=== PATIENT | male | born 1965 | race Caucasian/White ===

== ENCOUNTER 2017-02-06 22:02 | Observation (INO) | payer BC ==
--- NOTE | ~2017-02-06 | HP ---
History And Physical [place] [id number] [facility] [place]. [address] NAME: DAVI SEN : 69 STATUS : ADM Lori PAT#: [id number] AGE: 51 ADM/REG DATE : 02/06/17 MR#: [id number] REPORT SERV DATE: 02/07/17 DICTATED BY: DATE: REPORT STATUS : Draft TRANSCRIBED BY: MODL DATE: 02/07/17 DATE OF ADMISSION: 02/06/2017 PRIMARY CARE PROVIDER: He does not have one. He goes to [facility] CHIEF COMPLAINT: Chest pressure. HISTORY OF PRESENT ILLNESS: This is a 51-year-old white male with chest pressure to his substernum that does not radiate anywhere. He reports the chest pressure as a 4/10. The patient chest pressure woke him up two days ago from his sleep and he went up, walked around and he developed dry heaving. He went back to bed and fell asleep afterwards. Yesterday, his chest pressure reoccurred after playing basketball outside. He also developed shortness of breath and diaphoresis during that time. 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 They gave him nitro once, it did not relieve his pressure. His pressure was relieved after the second nitro, which also decreased his blood pressure. He has not had any reoccurrence of his chest pressure since. He does state that he has worked in a car earlier in the week and thinks he might have pulled the muscle. Currently, he denies any shortness of breath, chest pain, nausea, vomiting, or any abdominal pain. The patient also denies any personal history of myocardial infarction, stroke, DVT, or pulmonary embolus. The patient denies any recent fever or chills, palpitations, or syncopal episodes. PAST MEDICAL HISTORY: He reports to have had kidney stones; high blood pressure. About six months ago, he was given blood pressure medications, he has not taken them. Ear infection, hard of hearing and he wears hearing aids. PAST SURGICAL HISTORY: He has had a lithotripsy, he has had a punctured right kidney in his teens, fractures to bilateral hands due to boxing and a broken nose. He also reports to have had a cardiac catheterization two years ago that was normal per the patient. SOCIAL HISTORY: The patient is a package clerk. He is with two children. He has smoked one pack per day for 20 years. He quit about 11 years ago. No alcohol use. No drug use. FAMILY HISTORY: Mother, she has had congestive heart failure and two to three strokes. Father, he has had an ND at the age of 64, now he is having palpitations. REVIEW OF SYSTEMS: A 14-point review of systems was performed, significant for HPI. No other contributory diagnoses identified. ALLERGIES: NO KNOWN ALLERGIES. HOME MEDICATIONS: He denies taking any. PHYSICAL EXAMINATION: History And Physical [address] [address] NAME: DAVI SEN : 69 STATUS : ADM Lori PAT#: [id number] AGE: 51 ADM/REG DATE : 02/06/17 MR#: [id number] REPORT SERV DATE: 02/07/17 DICTATED BY: DATE: REPORT STATUS : Draft TRANSCRIBED BY: STEFF DATE: 02/07/17 GENERAL: Cooperative, in no apparent distress. HEENT: Head normocephalic, anicteric. Normal EOM. PERRLA. No xanthelasma. Nares patent. Moist mucous membranes. NECK: Trachea midline. No thyromegaly, JVD or bruits. CHEST: Having some tenderness on palpation. RESPIRATIONS: Unlabored respirations. Breath sounds clear except for fine crackles noted to his right lower lobe. No wheezes or rhonchi. CARDIOVASCULAR: Regular rate and rhythm. No murmur, rub or gallop appreciated. No chest wall tenderness to palpation. ABDOMEN: Soft, nontender, nondistended, normal bowel sounds auscultated throughout. No masses or organomegaly. EXTREMITIES: No peripheral edema. DP/PT and radial pulses palpable bilaterally. No clubbing or cyanosis. SKIN: Dry and intact. Normal turgor. Left lateral calf has some redness and a scab noted. Skin is warm. No drainage. I have instructed the patient to either [facility]up with [facility]" or to get a PCP of choice. He also has trace edema. No pallor nor cyanosis noted. NEURO/PSYCH: Alert, oriented x3 with no acute distress. Affect appropriate to current situation. LAB DATA: Troponins x3 less than 0.02. Potassium 3.9, BUN 8, creatinine 0.93, GFR 111, glucose 107, calcium 9.1. Magnesium 2.0. White blood cells 8.0, hemoglobin 16.6, hematocrit 47.3, platelets 192. INR 1.1. Chest x-ray from yesterday shows lungs clear. No acute cardiopulmonary abnormality. EKG dated 02/07/2017 at 0419 shows sinus rhythm 61, nonspecific T-waves noted in V1 and V2. 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 ASSESSMENT AND PLAN: 1. Chest pain. The patient denies any current pressure or chest pain. Troponins have been negative x3. We will keep the patient n.p.o. and order a stress echo today. If the stress test is low risk or no ischemia, the patient may be discharged home, and the patient will be asked to follow up with his PCP in about one week. I have discussed how important it is to have a primary care doctor followup, and the patient has stated he will go and see his 's PCP. So, we will try to arrange an appointment with Sheri Salinas. 2. Hypertension, appears stable. I have emphasized the importance of taking medications as prescribed and to follow up with the PCP. He appears to be noncompliant with his hypertension medications. 3. Hard of hearing. He wears hearing aids. EKS/MODL [place] History And Physical [address] [address] NAME: DAVI SEN : 69 STATUS : ADM Lori PAT#: [id number] AGE: 51 ADM/REG DATE : 02/06/17 MR#: [id number] REPORT SERV DATE: 02/07/17 DICTATED BY: DATE: REPORT STATUS : Draft TRANSCRIBED BY: MODL DATE: 02/07/17 LETITIA Boo / [id number] CC: Yancy Garrison, MSN, PROJECT DEVELOPMENT LEADER-BC
[~2017-02-06 22:02] MED LIST: *DENIES; DIL2TAB PO; PR25 PO; TORA IM
[2017-02-06 22:10] LABS: BASOPHILS 0.9 %; BASOPHILS ABSOLUTE 0.07 10/3/uL (0.0-0.16); EOSINOPHILS 2.1 %; EOSINOPHILS ABSOLUTE 0.17 10/3/uL (0.0-0.53); ER CBC TAT 0 Hrs 05 Mins; HEMATOCRIT 47.3 % (40.0-51.0); HEMOGLOBIN 16.6 g/dL (13.6-17.8); IMMATURE GRANULOCYTES 0.5 %; IMMATURE GRANULOCYTES ABSOLUTE 0.04 10/3/uL (0.0-0.11); LYMPHOCYTES 21.1 %; LYMPHOCYTES ABSOLUTE 1.68 10/3/uL (0.67-4.30); MANUAL DIFF NO %; MEAN CORPUS HGB CONC 35.1 g/dL (32.0-36.0); MEAN CORPUSCULAR HEMOGLOB 31.4 pg (26.0-34.0); MEAN CORPUSCULAR VOLUME 89.6 fL (80-100); MONOCYTES 9.2 %; MONOCYTES ABSOLUTE 0.73 10/3/uL (0.21-1.20); NEUTROPHILS 66.2 %; NEUTROPHILS ABSOLUTE 5.28 10/3/uL (2.02-8.40); PLATELET COUNT 192 10/3/uL (150-400); RBC DISTRIBUTION WIDTH 13.7 % (12.0-16.0); RED CELL COUNT 5.28 10/6/uL (4.7-6.1)
[2017-02-06 22:24] LABS: INTERNATIONAL NORMAL RATI 1.1 UNITS (-); PARTIAL THROMBO TIME 27.6 SEC (22.5-37.2); PROTIME (NOT ORD) 14.4 SEC (12.0-14.5)
[2017-02-06 22:26] LABS: BUN (BLOOD UREA NITROGEN) 8 MG/DL (6-23); CALCIUM, SERUM 9.1 MG/DL (8.5-10.4); CHEST PAIN PROFILE TAT 0 Hrs 21 Mins; CHLORIDE, SERUM 105 MMOL/L (96-112); CREATININE 0.93 MG/DL (0.70-1.30); GFR AFRICAN AMERICAN 111 ML/MIN (>=60); GFR NON AFRICAN AMERICAN 96 ML/MIN (>=60); GLUCOSE, SERUM 107 MG/DL (60-99); POTASSIUM, SERUM 3.9 MMOL/L (3.5-5.3); SODIUM, SERUM 140 MMOL/L (135-148); TROPONIN I <0.02 NG/ML (<0.05)
[2017-02-06 22:27] LABS: CO2 (CARBON DIOXIDE) 31 MMOL/L (24-34)
== END 2017-02-07 14:59 | disposition home or self-care (01) ==
LOC: ER 22:02 → CDU1 23:01 → CDU2 23:05
PROVIDERS: Hospitalist
DX: R07.9 Chest pain, unspecified (principal); I10 Essential (primary) hypertension; Z98.890 Other specified postprocedural states; F17.210 Nicotine dependence, cigarettes, uncomplicated; Z87.442 Personal history of urinary calculi
CPT/HCPCS: 71010; 80048; 83735; 84484; 85025; 85610; 85730; 93005; 93017; 99285; A9270-GY; C8928; G0378; Q9957